=== PATIENT | female | born 1955 | race Caucasian/White ===

== ENCOUNTER 2017-02-16 02:48 | Inpatient (IN) | payer BC ==
[~2017-02-16] VITALS: Ht 170.2 cm; Wt 87.3 kg
[~2017-02-16 02:48] MED LIST: ASPI-515 PO; CALCIUM CITR PO; CHOL200024 PO; HYDR12.53 PO; IRON PO; LISI-170 PO; LOVA10TA PO; MAGN PO; MULT-516 PO; OMEG500C3 PO
[2017-02-16] MEDS ORDERED: SODIUM CHLORIDE FLUSH 10ML SYR IVF ONE (03:00)
[2017-02-16] MEDS ORDERED: SODIUM CHLORIDE 0.9% 1,000ML IVBOLUS ONE (03:00)
[2017-02-16] MEDS ORDERED: MORPHINE SULFATE 4 MG/ML, 1ML IVPush PRN (03:00)
[2017-02-16] MEDS ORDERED: ONDANSETRON 2MG/ML, 2ML IVPush ONE (03:00)
[2017-02-16] MEDS ORDERED: MORPHINE SULFATE 4 MG/ML, 1ML ONE ×2 (03:17→03:40)
[2017-02-16] MEDS ORDERED: ONDANSETRON 2MG/ML, 2ML ONE (03:18)
[2017-02-16 03:31] LABS: ASPARTATE AMINO TRANSFERASE 19 U/L (15-37); BLOOD UREA NITROGEN 17 mg/dL (7-18)
[2017-02-16] MEDS ORDERED: CALC200T37 PO (03:37)
[2017-02-16] MEDS ORDERED: CHOL400C11 PO (03:37)
[2017-02-16] MEDS ORDERED: IBAN150T PO (03:37)
[2017-02-16] MEDS ORDERED: ANAS1TAB PO (03:37)
[2017-02-16] MEDS ORDERED: MAGN400T36 PO (03:37)
[2017-02-16 03:41] LABS: IS PT STATUS REG ER OR PRE ER? YES
[2017-02-16] MEDS ORDERED: BIVALIRUDIN 250 MG ONE (03:42)
[2017-02-16] MEDS ORDERED: FENTANYL PF 100 MCG/2ML ONE (03:42)
[2017-02-16] MEDS ORDERED: MIDAZOLAM 1 MG/ML, 5ML ONE (03:42)
[2017-02-16] MEDS ORDERED: LIDOCAINE 2%, 20ML ONE (03:42)
[2017-02-16] MEDS ORDERED: TICAGRELOR 90 MG TABLET ONE (03:42)
[2017-02-16] MEDS ORDERED: POTASSIUM CHLORIDE 20 MEQ TAB.ER.PRT PO ONE (04:00)
[2017-02-16] MEDS ORDERED: NS + 20MEQ KCL 1,000 ML IV SCH (04:43)
[2017-02-16] MEDS ORDERED: morphine SULFATE 10 MG/ML, 1ML IVPush PRN (05:00)
[2017-02-16] MEDS ORDERED: ONDANSETRON 2MG/ML, 2ML IVPush PRN (05:00)
[2017-02-16] MEDS ORDERED: DOCUSATE 100 MG CAPSULE PO PRN (05:00)
[2017-02-16] MEDS ORDERED: POLYETHYLENE GLYCOL 17 GM PACKET PO PRN (05:00)
[2017-02-16] MEDS ORDERED: ACETAMINOPHEN 325 MG TABLET PO PRN (05:00)
[2017-02-16 07:34] VITALS: BP 116/76
[2017-02-16] MEDS ORDERED: ANASTROZOLE 1 MG TABLET PO SCH (09:00)
[2017-02-16] MEDS ORDERED: CALCIUM CITRATE 950 MG TABLET PO SCH ×2 (09:00→09:20)
[2017-02-16] MEDS ORDERED: MAGNESIUM OXIDE 400 MG TABLET PO SCH (09:00)
[2017-02-16] MEDS ORDERED: ASPIRIN 81 MG TABLET EC PO SCH (09:00)
[2017-02-16] MEDS: SENNA/DOCUSATE TABLET PO SCH (09:00)
[2017-02-16] MEDS ORDERED: HYDROCHLOROTHIAZIDE 12.5 MG CAPSULE PO SCH (09:00)
[2017-02-16 09:25] VITALS: BP 128/83
[2017-02-16] MEDS: HYDROcodone/APAP 5/325 TABLET PO PRN ×2 (09:38→11:02)
[2017-02-16] MEDS: HEPARIN 5,000 UNITS/ML, 1ML SQ SCH ×2 (11:02→18:55)
[2017-02-16 11:26] LABS: IS PT STATUS REG ER OR PRE ER? NO
[2017-02-16 15:33] VITALS: BP 124/76
[2017-02-16 17:30] LABS: IS PT STATUS REG ER OR PRE ER? YES
[2017-02-16 19:58] VITALS: BP 125/80
[2017-02-16] MEDS: ANASTROZOLE 1 MG TABLET PO SCH (21:51)
[2017-02-16] MEDS: ASPIRIN 81 MG TABLET EC PO SCH (21:52)
[2017-02-16] MEDS: CALCIUM CITRATE 950 MG TABLET PO SCH (21:52)
[2017-02-16] MEDS: HYDROCHLOROTHIAZIDE 12.5 MG CAPSULE PO SCH (21:52)
[2017-02-16] MEDS: MAGNESIUM OXIDE 400 MG TABLET PO SCH (21:52)
[2017-02-16] MEDS: SIMVASTATIN 5 MG TABLET PO SCH (21:52)
[2017-02-17 00:57] VITALS: BP 127/74
[2017-02-17] MEDS: HEPARIN 5,000 UNITS/ML, 1ML SQ SCH ×2 (02:05→10:56)
[2017-02-17] MEDS ORDERED: NS + 20MEQ KCL 1,000 ML IV SCH (04:43)
[2017-02-17 05:11] LABS: BLOOD UREA NITROGEN 9 mg/dL (7-18)
[2017-02-17 08:28] VITALS: BP 122/79
[2017-02-17] MEDS: SODIUM CHLORIDE 0.9% 1,000 ML IV SCH ×2 (08:31→20:49)
[2017-02-17] MEDS: SENNA/DOCUSATE TABLET PO SCH (08:32)
[2017-02-17] MEDS ORDERED: OMNIPAQUE 350 MG/ML, 100ML BOTTLE ONE (08:58)
[2017-02-17 09:29] LABS: BLOOD UREA NITROGEN 10 mg/dL (7-18)
[2017-02-17 14:10] VITALS: BP 120/77
[2017-02-17 18:59] VITALS: BP 115/72
[2017-02-17] MEDS: ANASTROZOLE 1 MG TABLET PO SCH (20:47)
[2017-02-17] MEDS: ASPIRIN 81 MG TABLET EC PO SCH (20:48)
[2017-02-17] MEDS: SIMVASTATIN 5 MG TABLET PO SCH (20:49)
[2017-02-17] MEDS: CALCIUM CITRATE 950 MG TABLET PO SCH (20:49)
[2017-02-17] MEDS: HYDROCHLOROTHIAZIDE 12.5 MG CAPSULE PO SCH (20:49)
[2017-02-17] MEDS: MAGNESIUM OXIDE 400 MG TABLET PO SCH (20:52)
[2017-02-18] VITALS (14 sets, daily range): BP systolic 102–132; BP diastolic 60–89
[2017-02-18 06:19] LABS: ASPARTATE AMINO TRANSFERASE 17 U/L (15-37); BLOOD UREA NITROGEN 8 mg/dL (7-18)
[2017-02-18] MEDS: SENNA/DOCUSATE TABLET PO SCH (08:08)
[2017-02-18] MEDS ORDERED: BUPIVACAINE/PF-EPI 0.5% 1:200K ONE ×2 (09:15→16:12)
[2017-02-18] MEDS: SODIUM CHLORIDE 0.9% 1,000 ML IV SCH ×2 (13:10→23:29)
[2017-02-18] MEDS ORDERED: FENTANYL PF 250 MCG/5ML ONE (16:26)
[2017-02-18] MEDS ORDERED: SUCCINYLCHOLINE 20 MG/ML, 10ML ONE (16:27)
[2017-02-18] MEDS ORDERED: METOCLOPRAMIDE 5 MG/ML, 2ML ONE (16:27)
[2017-02-18] MEDS ORDERED: PROPOFOL 10 MG/ML, 20ML ONE (16:27)
[2017-02-18] MEDS ORDERED: NEOSTIGMINE 1 MG/ML, 10ML ONE (16:27)
[2017-02-18] MEDS ORDERED: ONDANSETRON 2MG/ML, 2ML ONE (16:27)
[2017-02-18] MEDS ORDERED: CEFOTETAN 2 GM ONE (16:27)
[2017-02-18] MEDS ORDERED: DEXAMETHASONE 4 MG/ML, 1ML ONE (16:27)
[2017-02-18] MEDS ORDERED: ROCURONIUM 10 MG/ML ONE (16:27)
[2017-02-18] MEDS ORDERED: GLYCOPYRROLATE 0.2MG/1ML ONE (16:27)
[2017-02-18] MEDS ORDERED: ONDANSETRON 2MG/ML, 2ML IVPush PRN (17:00)
[2017-02-18] MEDS ORDERED: MIDAZOLAM 1 MG/ML, 2ML IV PRN (17:00)
[2017-02-18] MEDS ORDERED: hydrALAzine 20 MG/ML, 1ML IV PRN (17:00)
[2017-02-18] MEDS ORDERED: MEPERIDINE/PF 25MG/0.5ML IVPush PRN (17:00)
[2017-02-18] MEDS ORDERED: HYDROmorphone 1 MG/ML, 1ML IV PRN (17:00)
[2017-02-18] MEDS ORDERED: FENTANYL PF 100 MCG/2ML IV PRN (17:00)
[2017-02-18] MEDS ORDERED: OXYcodone 5 MG/5 ML ORAL.SOL UDC PO PRN (17:00)
[2017-02-18] MEDS ORDERED: LABETALOL 5MG/ML, 20ML IV PRN (17:00)
[2017-02-18] MEDS ORDERED: ACETAMINOPHEN 325 MG TABLET PO PRN (17:00)
[2017-02-18] MEDS ORDERED: PROMETHAZINE 25 MG/ML, 1ML IV PRN (17:00)
[2017-02-18] MEDS ORDERED: FENTANYL PF 100 MCG/2ML ONE (17:27)
[2017-02-18] MEDS ORDERED: ACETAMINOPHEN 650 MG/20.3 ML UDC ONE (17:27)
[2017-02-18] MEDS ORDERED: OXYcodone 5 MG/5 ML ORAL.SOL UDC ONE (17:27)
[2017-02-18] MEDS: ASPIRIN 81 MG TABLET EC PO SCH (20:52)
[2017-02-18] MEDS: MAGNESIUM OXIDE 400 MG TABLET PO SCH (20:53)
[2017-02-18] MEDS: SIMVASTATIN 5 MG TABLET PO SCH (20:53)
[2017-02-18] MEDS: HYDROCHLOROTHIAZIDE 12.5 MG CAPSULE PO SCH (20:53)
[2017-02-18] MEDS: CALCIUM CITRATE 950 MG TABLET PO SCH (20:53)
[2017-02-18] MEDS: ANASTROZOLE 1 MG TABLET PO SCH (20:56)
[2017-02-18] MEDS: HYDROcodone/APAP 5/325 TABLET PO PRN (22:35)
[2017-02-19 00:45] VITALS: BP 111/65
[2017-02-19 01:45] VITALS: BP 93/63
[2017-02-19 02:17] VITALS: BP 113/59
[2017-02-19] MEDS: HYDROcodone/APAP 5/325 TABLET PO PRN ×2 (02:47→08:28)
[2017-02-19 04:00] VITALS: BP 106/62
[2017-02-19 07:36] VITALS: BP 99/64
[2017-02-19] MEDS: SENNA/DOCUSATE TABLET PO SCH (07:52)
== END 2017-02-19 10:49 | disposition home or self-care (01) | DRG 417 ==
LOC: ED 03:31 → EDIP 03:47 → 5SO 04:36 → 3NW 02-17 19:44
PROVIDERS: ADMIT Internal Medicine Interventional Cardiology; ATTEND Family Medicine
PROC: 0FT44ZZ Resection of Gallbladder, Percutaneous Endoscopic Approach (ICD-10-PCS; principal; 2017-02-16)
PROC: 4A023N7 Measurement of Cardiac Sampling and Pressure, Left Heart, Percutaneous Approach (ICD-10-PCS; 2017-02-16)
PROC: B2111ZZ Fluoroscopy of Multiple Coronary Arteries using Low Osmolar Contrast (ICD-10-PCS; 2017-02-16)
PROC: B2151ZZ Fluoroscopy of Left Heart using Low Osmolar Contrast (ICD-10-PCS; 2017-02-16)
DX: K80.00 Calculus of gallbladder with acute cholecystitis without obstruction (principal); I21.19 ST elevation (STEMI) myocardial infarction involving other coronary artery of inferior wall; I10 Essential (primary) hypertension; K76.0 Fatty (change of) liver, not elsewhere classified; K76.89 Other specified diseases of liver; D17.71 Benign lipomatous neoplasm of kidney; E78.5 Hyperlipidemia, unspecified; Z85.3 Personal history of malignant neoplasm of breast; Z85.42 Personal history of malignant neoplasm of other parts of uterus; Z90.89 Acquired absence of other organs; Z90.710 Acquired absence of both cervix and uterus; Z82.49 Family history of ischemic heart disease and other diseases of the circulatory system; Z88.0 Allergy status to penicillin; Z83.3 Family history of diabetes mellitus
CPT/HCPCS: 36415; 71010; 71275; 74170; 76700; 80047; 80048; 80053; 80061; 80076; 83735; 84100; 84484; 85025; 88304; 93005; 93306; 93458; 96374; 96375; 99156; 99157; C1760; C1894; J0583; J1100; J1644; J2250; J2405; J2704; J2710; J3010; J3480; J3490; Q9967; C1887; J0330; J2765; J7030; S0074

== ENCOUNTER → 2017-03-08 | Outpatient (CLI) | payer BC ==
[~2017-03-08] MED LIST changes: +ANAS1TAB PO; +CALC200T37 PO; +CHOL400C11 PO; +IBAN150T PO; +MAGN400T36 PO
== END | disposition home or self-care (01) ==
LOC: CFH 10:12
PROVIDERS: ATTEND Physician Assistant
DX: M41.84 Other forms of scoliosis, thoracic region (principal); C54.1 Malignant neoplasm of endometrium; Z90.49 Acquired absence of other specified parts of digestive tract
CPT/HCPCS: 71020

== ENCOUNTER → 2017-03-08 | Outpatient (CLI) | payer BC | END | disposition home or self-care (01) | LOC: CFH 10:10 | PROVIDERS: ATTEND Radiology Radiation Oncology | DX: Z12.31 Encounter for screening mammogram for malignant neoplasm of breast (principal); Z85.3 Personal history of malignant neoplasm of breast; Z90.12 Acquired absence of left breast and nipple; Z92.3 Personal history of irradiation | CPT/HCPCS: G0202 ==

== ENCOUNTER → 2018-03-23 | Outpatient (CLI) | payer BC ==
[~2018-03-23] MED LIST changes: +CALC-680 PO; -CALC200T37 PO
== END | disposition home or self-care (01) ==
LOC: CFH 12:32
PROVIDERS: ATTEND Radiology Radiation Oncology
DX: Z12.31 Encounter for screening mammogram for malignant neoplasm of breast (principal); Z13.820 Encounter for screening for osteoporosis; M85.80 Other specified disorders of bone density and structure, unspecified site; M81.0 Age-related osteoporosis without current pathological fracture; C54.1 Malignant neoplasm of endometrium; Z78.0 Asymptomatic menopausal state; Z85.3 Personal history of malignant neoplasm of breast; Z88.0 Allergy status to penicillin
CPT/HCPCS: 71046; 77063; 77080; 77067

== ENCOUNTER 2019-06-07 15:32 | Outpatient (CLI) | payer BC ==
[~2019-06-07 15:32] MED LIST changes: +HYDR12.517 PO; -HYDR12.53 PO; -IBAN150T PO; +IBAN150T15 PO
== END 2019-06-07 23:59 | disposition home or self-care (01) ==
LOC: CFH 15:32
PROVIDERS: ATTEND Family Medicine
DX: I51.7 Cardiomegaly (principal); I31.3 Pericardial effusion (noninflammatory); Z83.3 Family history of diabetes mellitus; Z82.49 Family history of ischemic heart disease and other diseases of the circulatory system; E78.5 Hyperlipidemia, unspecified; Z85.42 Personal history of malignant neoplasm of other parts of uterus; Z85.3 Personal history of malignant neoplasm of breast
CPT/HCPCS: 93306

== ENCOUNTER → 2019-12-20 | Outpatient (CLI) | payer BC | END | disposition home or self-care (01) | LOC: CFH 14:46 | PROVIDERS: ATTEND Internal Medicine Cardiovascular Disease | DX: I31.3 Pericardial effusion (noninflammatory) (principal); I10 Essential (primary) hypertension | CPT/HCPCS: 93306 ==

== ENCOUNTER → 2020-07-31 | Outpatient (CLI) | payer BC | END | disposition home or self-care (01) | LOC: CFH 08:07 | PROVIDERS: ATTEND Family Medicine | DX: Z12.31 Encounter for screening mammogram for malignant neoplasm of breast (principal) | CPT/HCPCS: 77063; 77067 ==

== ENCOUNTER → 2021-01-07 | Outpatient (CLI) | payer BC ==
[~2021-01-07] MED LIST changes: -ASPI-515 PO; +ASPI-963 PO
== END | disposition home or self-care (01) ==
LOC: CFH 12:39
PROVIDERS: ATTEND Internal Medicine Cardiovascular Disease
DX: I36.1 Nonrheumatic tricuspid (valve) insufficiency (principal); I11.9 Hypertensive heart disease without heart failure; E78.5 Hyperlipidemia, unspecified; I31.3 Pericardial effusion (noninflammatory)
CPT/HCPCS: 93306; 93356